=== PATIENT | male | born 1990 | race Caucasian/White ===

== ENCOUNTER 2021-09-13 18:34 | Emergency (ER) | payer MEDICAID ==
[~2021-09-13] VITALS: Ht 180.3 cm; Wt 109.1 kg
[2021-09-13 19:08] LABS: BASOPHILS % (AUTO) 0.4 % (0-1); EOSINOPHILS % (AUTO) 0.1 % (0-6); HEMATOCRIT 47.7 % (42.0-52.0); HEMOGLOBIN 16.8 g/dl (14.0-17.9); LYMPHOCYTES # (AUTO) 1.4 X10'3 (1.1-4.8); LYMPHOCYTES % (AUTO) 13.3 % (21-51); MEAN CORPUSCULAR HEMOGLOBIN 33.9 PG (27.0-31.0); MEAN CORPUSCULAR HGB CONC 35.3 g/dL (33.0-36.5); MEAN PLATELET VOLUME 6.4 FL (7.4-10.4); MONOCYTES # (AUTO) 0.5 X10'3 (0-0.9); MONOCYTES % (AUTO) 4.4 % (2-12); NEUTROPHILS # (AUTO) 8.8 X10'3 (1.8-7.7); NEUTROPHILS % (AUTO) 81.8 % (42-75); PLATELET COUNT 226 X10'3 (140-440); RED BLOOD COUNT 4.97 X10'6 (4.70-6.10); RED CELL DISTRIBUTION WIDTH 13.3 % (11.5-14.5); WHITE BLOOD COUNT 10.8 X10'3 (4.5-11.0)
[2021-09-13 19:24] LABS: ALANINE AMINOTRANSFERASE 40 U/L (12-78); ALBUMIN 4.2 G/DL (3.4-5.0); ALBUMIN/GLOBULIN RATIO 0.9 (1.1-1.5); ALKALINE PHOSPHATASE 84 IU/L (46-116); ANION GAP 13 (8-16); ASPARTATE AMINO TRANSFERASE 26 U/L (10-37); BILIRUBIN,TOTAL 0.9 MG/DL (0.1-1.0); BLOOD UREA NITROGEN 9 MG/DL (7-18); BUN/CREATININE RATIO 8.3 (5.4-32.0); CALCIUM 8.6 MG/DL (8.5-10.1); CHLORIDE 94 MMOL/L (99-107); CREATININE 1.08 MG/DL (0.60-1.10); GLUCOSE 121 MG/DL (70-104); POTASSIUM 3.6 MMOL/L (3.5-5.1); SODIUM 135 MMOL/L (135-145); TOTAL CARBON DIOXIDE 27.6 MMOL/L (24-32); TOTAL PROTEIN 8.9 G/DL (6.4-8.2); eGFR 79 ML/MIN
[2021-09-13 21:38] VITALS: BP 145/94
== END 2021-09-13 21:41 | disposition home or self-care (01) ==
LOC: ER 18:36
DX: R07.89 Other chest pain (principal); R06.02 Shortness of breath; R11.2 Nausea with vomiting, unspecified; F17.200 Nicotine dependence, unspecified, uncomplicated; Z72.89 Other problems related to lifestyle
CPT/HCPCS: 36415; 71045; 80053; 83880; 84484; 85025; 93005; 99285

== ENCOUNTER 2022-12-06 21:13 | Emergency (ER) | payer MEDICAID ==
[~2022-12-06] VITALS: Ht 180.3 cm; Wt 95.0 kg
[2022-12-06] MEDS ORDERED: sulfamethoxazole/trimethoprim DS (800/160mg) tablet PO ONE (22:20)
[2022-12-06 22:46] VITALS: BP 115/73
[2022-12-06] MEDS ORDERED: SULF1TAB49 PO (23:44)
== END 2022-12-06 23:54 | disposition home or self-care (01) ==
LOC: ER 21:14
DX: L03.115 Cellulitis of right lower limb (principal)
CPT/HCPCS: 93971; 99284

== ENCOUNTER 2023-03-28 15:35 | Emergency (ER) | payer MEDICAID ==
[~2023-03-28] VITALS: Ht 180.3 cm; Wt 73.6 kg
[2023-03-28 15:42] VITALS: BP 169/105; PULSE 86; RESP 16; TEMP 98.8; O2SAT 97
== END 2023-03-28 17:24 | disposition home or self-care (01) ==
LOC: ER 15:35
DX: M79.601 Pain in right arm (principal); W19.XXXA Unspecified fall, initial encounter; Y93.89 Activity, other specified; Y92.89 Other specified places as the place of occurrence of the external cause; Y99.8 Other external cause status
CPT/HCPCS: 73630; 99283; L4360